=== PATIENT | female | born 1985 | race Caucasian/White ===

== ENCOUNTER 2018-12-04 13:26 | Emergency (ER) | payer SELFPAY ==
[2018-12-04 14:24] LABS: #Basophils 0.1 thou/uL (0.0-0.2); #Eosinphils 0.3 thou/uL (0.0-0.7); #Lymphocytes 2.2 thou/uL (1.20-3.40); #Monocytes 0.8 thou/uL (0.11-0.59); #Neutrophils 9.6 thou/uL (1.40-6.50); %Basophils 0.4 % (0.0-1.0); %Eosinophils 2.1 % (0.0-10.0); %Lymphocytes 17.1 % (21.0-51.0); %Monocytes 6.4 % (0.0-10.0); %Neutrophils 73.9 % (42.0-75.0); Hemoglobin 13.5 g/dL (12.0-16.0); Mean Corpuscular HGB CONC 33.6 g/dL (32.0-36.0); Mean Corpuscular Hemoglobin 33.1 pg (27.0-31.0); Mean Corpuscular Volume 98.6 fL (78.0-98.0); Mean Platelet Volume 6.9 fL (7.4-10.4); Platelet Count 317 thou/uL (130-400); RBC Distribution Width 10.7 % (11.5-14.5); Red Blood Cell (RBC) Count 4.08 mill/uL (4.20-5.40); White Blood Cell (WBC) Count 12.9 thou/uL (4.8-10.8)
[2018-12-04 14:47] LABS: ALT (SGPT) 25 U/L (8-55); AST (SGOT) 14 U/L (5-34); Alkaline Phosphatase 42 U/L (40-150); Anion Gap 14 mmol/L (10-20); BUN (Urea Nitrogen) 11 mg/dL (7.0-18.7); Bilirubin, Total 0.6 mg/dL (0.2-1.2); Calc. Creatinine Clearance 0 mL/min (70-130); Calcium 9.9 mg/dL (7.8-10.44); Carbon Dioxide 21 mmol/L (22-29); Chloride 103 mmol/L (98-107); Estimated GFR-MDRD Greater than 90; Globulin 2.7 g/dL (2.4-3.5); Glucose 93 mg/dL (70-105); Lipase 22 U/L (8-78); Potassium 3.7 mmol/L (3.5-5.1); Protein, Total 6.7 g/dL (6.0-8.3); Sodium 134 mmol/L (136-145)
[2018-12-04] MEDS ORDERED: Acetaminophen 325 MG TAB ONE (15:30)
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
[2018-12-04 15:45] LABS: Bilirubin Negative (Negative); Blood, Urine Negative (Negative); Clarity CLEAR (Clear); Glucose, Urine (Dipstick) Negative (Negative); Leukocyte Negative (Negative); Nitrite Negative (Negative); Protein, Urine (Dipstick) Negative (Neg-Trace); Specific Gravity, Urine 1.004 (1.002-1.036); Urobilinogen 0.2 mg/dL (0.2-1.0)
== END 2018-12-04 16:15 | disposition home or self-care (01) ==
LOC: ERS 13:26
DX: O9A.211 Injury, poisoning and certain other consequences of external causes complicating pregnancy, first trimester (principal); O31.21X0 Continuing pregnancy after intrauterine death of one fetus or more, first trimester, not applicable or unspecified; O99.89 Other specified diseases and conditions complicating pregnancy, childbirth and the puerperium; M54.2 Cervicalgia; R10.9 Unspecified abdominal pain; Z87.891 Personal history of nicotine dependence; V43.52XA Car driver injured in collision with other type car in traffic accident, initial encounter; Z3A.09 9 weeks gestation of pregnancy
CPT/HCPCS: 36415; 76856; 80053; 81003; 83690; 85025; 93976

== ENCOUNTER 2019-06-30 20:22 | Inpatient (IN) | payer BC ==
[2019-06-30 21:51] VITALS: BMI 36.9
[2019-06-30] MEDS ORDERED: Promethazine HCl 25 MG/ML VIAL IM PRN (22:09)
[2019-06-30] MEDS ORDERED: Acetaminophen 500 MG TAB PO PRN (22:09)
[2019-06-30] MEDS ORDERED: hydrALAZINE 20 MG/ML VIAL SLOW IVP PRN (22:09)
[2019-06-30] MEDS ORDERED: Butorphanol Tartrate 1 MG/ML VIAL SLOW IVP PRN (22:09)
[2019-06-30] MEDS ORDERED: Ondansetron PF 4 MG/2 ML Vial IVP PRN (22:09)
[2019-06-30] MEDS ORDERED: HYDROcodone/Acetaminophen 5/325 mg Tablet PO PRN (22:15)
[2019-06-30] MEDS ORDERED: Misoprostol 200 MCG TAB RC PRN (22:15)
[2019-06-30] MEDS ORDERED: Ibuprofen 800 MG TAB PO PRN (22:15)
[2019-06-30] MEDS ORDERED: NS w/ Oxytocin 10 units 500 ML IV SCH (22:15)
[2019-06-30] MEDS ORDERED: NS / Oxytocin 40 units/1000ml 1,000 ML IV SCH (22:15)
[2019-06-30] MEDS ORDERED: Lidocaine 1% (PF) 30 ML VIAL SC PRN (22:15)
[2019-06-30] MEDS ORDERED: Carboprost 250 MCG/ML AMP IM PRN (22:15)
[2019-06-30] MEDS ORDERED: Methylergonovine 0.2 MG/ML VIAL IM PRN (22:15)
[2019-06-30 22:22] LABS: Hemoglobin 11.4 g/dL (12.0-16.0); Mean Corpuscular HGB CONC 33.4 g/dL (32.0-36.0); Mean Corpuscular Hemoglobin 30.8 pg (27.0-31.0); Mean Corpuscular Volume 92.4 fL (78.0-98.0); Mean Platelet Volume 7.1 fL (7.4-10.4); Platelet Count 332 thou/uL (130-400); RBC Distribution Width 12.4 % (11.5-14.5); Red Blood Cell (RBC) Count 3.68 mill/uL (4.20-5.40); White Blood Cell (WBC) Count 14.4 thou/uL (4.8-10.8)
[2019-06-30 22:53] LABS: Syphilis Antibody Nonreactive (Nonreactive); Syphilis Antibody Index 0.05 S/CO (<1.00 Non-Reactive)
[2019-07-01 00:29] LABS: HBSAg Index 0.12 S/CO (0-0.99); Hep B Surf Ag Non-Reactive S/CO (NonReactive)
[2019-07-01] MEDS: Calcium Carbonate 500 MG ChewTAB PO PRN ×2 (06:18→09:46)
[2019-07-01] MEDS: NS w/ Oxytocin 10 units 500 ML IV SCH (09:35)
[2019-07-01] MEDS ORDERED: Bupivacaine/Epinephrine 0.5% 10 ML VIAL ONE (11:11)
[2019-07-01] MEDS ORDERED: Fentanyl 4 mcg/Bup 0.1% Cadd 100 ML ONE (18:57)
[2019-07-01] MEDS ORDERED: Acetaminophen 325 MG TAB PO PRN (19:58)
[2019-07-01] MEDS ORDERED: Naloxone HCl 0.4 mg/ml Vial IVP PRN ×2 (19:58)
[2019-07-01] MEDS ORDERED: Lactated Ringer's 500 ML IV PRN (19:58)
[2019-07-01] MEDS ORDERED: Ondansetron PF 4 MG/2 ML Vial IVP PRN (19:58)
[2019-07-01] MEDS ORDERED: ePHEDrine/0.9% NaCl/PF SYRINGE 50 mg/10 ml SLOW IVP PRN (19:58)
[2019-07-01] MEDS ORDERED: diphenhydrAMINE 50 MG/ML VIAL IVP PRN (19:58)
[2019-07-01] MEDS ORDERED: Promethazine HCl 25 MG/ML VIAL IM PRN (19:58)
[2019-07-01] MEDS ORDERED: Fentanyl 4 mcg/Bupivacaine 0.1% Cassette 100 ML EPIDURAL SCH (20:00)
[2019-07-01] MEDS ORDERED: Communication Order-Pharmacy FS SCH (20:00)
[2019-07-01] MEDS ORDERED: Lactated Ringer's 1,000 ML IV SCH (20:30)
[2019-07-01] MEDS: Ampicillin 2 GM in Sodium Chloride 0.9% 100 ML IVPB SCH (20:49)
[2019-07-02] MEDS ORDERED: NS / Oxytocin 40 units/1000ml 1,000 ML ONE (00:05)
[2019-07-02] MEDS ORDERED: Lidocaine 1% (PF) 30 ML VIAL ONE (00:05)
[2019-07-02] MEDS ORDERED: Zolpidem Tartrate 5 MG TAB PO PRN (01:25)
[2019-07-02] MEDS ORDERED: Misoprostol 200 MCG TAB VAG PRN (01:25)
[2019-07-02] MEDS ORDERED: Acetaminophen/Codeine 30-300mg Tablet PO PRN (01:25)
[2019-07-02] MEDS ORDERED: Adacel (T-DAP) 0.5 ML SYRINGE IM ONE (01:25)
[2019-07-02] MEDS ORDERED: Lanolin Ointment 7 GM TUBE TOP PRN (01:25)
[2019-07-02] MEDS ORDERED: Preparation H Ointment 28 GM TUBE PR PRN (01:25)
[2019-07-02] MEDS ORDERED: Milk Of Magnesia 30 ML UDCUP PO PRN (01:25)
[2019-07-02] MEDS ORDERED: diphenhydrAMINE 25 MG CAP PO PRN (01:25)
[2019-07-02] MEDS ORDERED: Bisacodyl 10 MG SUPP PR PRN (01:25)
[2019-07-02] MEDS ORDERED: Ondansetron PF 4 MG/2 ML Vial IVP PRN (01:25)
[2019-07-02] MEDS ORDERED: hydrALAZINE 20 MG/ML VIAL SLOW IVP PRN (01:25)
[2019-07-02] MEDS ORDERED: Benzocaine-Menthol 82.5 ML CAN TOP PRN (01:25)
[2019-07-02] MEDS ORDERED: NS / Oxytocin 40 units/1000ml 1,000 ML IV SCH (01:30)
[2019-07-02] MEDS: Ibuprofen 800 MG TAB PO SCH ×3 (05:04→20:53)
[2019-07-02] MEDS: Acetaminophen/Codeine 30-300mg Tablet PO PRN ×2 (06:23→14:18)
[2019-07-02] MEDS: NS w/ Oxytocin 10 units 500 ML IV SCH (07:56)
[2019-07-02] MEDS: Ampicillin 2 GM in Sodium Chloride 0.9% 100 ML IVPB SCH (07:58)
[2019-07-02] MEDS: Ferrous Sulfate 325 MG TAB PO SCH ×2 (08:57→14:57)
[2019-07-02] MEDS: Docusate Calcium (SURFAK) 240 MG CAP PO SCH ×2 (09:02→20:53)
[2019-07-02] MEDS: Prenatal Vitamin 1 TAB PO SCH (09:02)
[2019-07-03] MEDS: Ibuprofen 800 MG TAB PO SCH ×3 (05:01→21:12)
[2019-07-03] MEDS: Ferrous Sulfate 325 MG TAB PO SCH ×2 (09:11→17:35)
[2019-07-03] MEDS: Prenatal Vitamin 1 TAB PO SCH (09:30)
[2019-07-03] MEDS: Docusate Calcium (SURFAK) 240 MG CAP PO SCH ×2 (09:31→21:12)
[2019-07-04] MEDS: Ibuprofen 800 MG TAB PO SCH (05:54)
[2019-07-04] MEDS: Prenatal Vitamin 1 TAB PO SCH (08:09)
[2019-07-04] MEDS: Ferrous Sulfate 325 MG TAB PO SCH (08:09)
[2019-07-04] MEDS: Docusate Calcium (SURFAK) 240 MG CAP PO SCH (08:09)
[2019-07-04 08:21] VITALS: BP 132/63; TEMP 98
== END 2019-07-04 13:15 | disposition home or self-care (01) | DRG 807 ==
LOC: L&D/OP 20:22 → L&D-LIB 07-01 01:03 → 3SW 07-02 04:15
PROVIDERS: ADMIT Obstetrics & Gynecology; ATTEND Obstetrics & Gynecology
PROC: 10E0XZZ Delivery of Products of Conception, External Approach (ICD-10-PCS; principal; 2019-07-01)
PROC: 0KQM0ZZ Repair Perineum Muscle, Open Approach (ICD-10-PCS; 2019-07-01)
DX: O63.9 Long labor, unspecified (principal); Z37.0 Single live birth; O70.1 Second degree perineal laceration during delivery; Z3A.39 39 weeks gestation of pregnancy
CPT/HCPCS: 36415; 51702; 85027; 86780; 86850; 86900; 86901; 87340; 99285; J0290; J2001; J2405; J2590; J3490

== ENCOUNTER 2022-12-12 11:03 | Outpatient (CLI) | payer OTHER | END 2022-12-12 11:04 | disposition home or self-care (01) | LOC: RAD 11:03 | PROVIDERS: ATTEND Nurse Practitioner Family | DX: R05.3 Chronic cough (principal) | CPT/HCPCS: 71046 ==

== ENCOUNTER 2024-01-09 07:56 | Emergency (ER) | payer OTHER ==
[2024-01-09] MEDS ORDERED: Lidocaine 1% w/Epinephrine 1:100K 20 ML VIAL ONE (08:36)
== END 2024-01-09 10:04 | disposition home or self-care (01) ==
LOC: ERS 07:56
DX: S70.11XA Contusion of right thigh, initial encounter (principal); L03.115 Cellulitis of right lower limb; X58.XXXA Exposure to other specified factors, initial encounter; Z87.891 Personal history of nicotine dependence
CPT/HCPCS: 99282